=== PATIENT | male | born 1950 | race Caucasian/White ===

== ENCOUNTER → 2017-01-12 | Outpatient (CLI) | payer OTHER ==
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
== END | disposition home or self-care (01) ==
LOC: SLEEP 10:17
PROVIDERS: ATTEND Internal Medicine
DX: G47.33 Obstructive sleep apnea (adult) (pediatric) (principal); Z87.891 Personal history of nicotine dependence; E66.3 Overweight; Z68.29 Body mass index [BMI] 29.0-29.9, adult; G47.10 Hypersomnia, unspecified; Z87.442 Personal history of urinary calculi; Z98.890 Other specified postprocedural states
CPT/HCPCS: 99211

== ENCOUNTER → 2017-04-06 | Outpatient (CLI) | payer OTHER ==
--- NOTE | 2017-04-06 11:21 | PN ---
DATE OF SERVICE: 04/06/2017 A 66-year-old gentleman who has been followed in the sleep center for treatment of obstructive sleep apnea-hypopnea syndrome. Recently patient had a polysomnogram and titration with CPAP and I discussed results of the tests with patient in detail. He has severe sleep apnea. The patient was started on treatment with CPAP. He brought his unit. At the beginning, he did not have any problem with the equipment, feels very well refreshed in the morning, but with time he developed some problem with the mask with relationship to irritation of ( ) of his nose and for the last several days, he did not use his machine because of that. I checked his CPAP unit. Usage is 21 out of 30 nights, 13 out of 30 nights for more than 4 hours, a leak is up to 52 L per minute, which is significantly higher than it should be. With that regimen, AHI is 19.2, which is above normal. I reviewed results of the titration and results were perfect at the pressure of 13 with CPAP has now basically not have any abnormalities of respirations at all. MEDICATIONS: None. During physical exam, A 66-year-old gentleman without distress. VITAL SIGNS: BP 148/90 on the right arm, 137/84 on the left arm. HR 60, RR 16. Weight 199, temperature 97.7, oxygen saturation at room air 99%. HEENT: PERRLA, EOMI. Evaluation of oropharynx showed extremely low position of soft palate. Neck: Supple. No JVD. Thyroid is not palpable. LUNGS: Clear to percussion and to auscultation. Good air exchange. No wheezing or rhonchi. HEART: S1, S2 regular. No murmurs, gallops, or rubs. ABDOMEN: Soft and nontender. Bowel sounds are present. No organomegaly appreciated. EXTREMITIES: No clubbing or cyanosis. BLOW DOWN OPERATOR: Awake, alert, and oriented x3. Cranial nerves 2 to 7 intact. There is no fasciculation or atrophy noted. No focal deficits observed. IMPRESSION: 1. Severe obstructive sleep apnea-hypopnea syndrome. Apnea-hypopnea index 36.4 with oxygen desaturation to 77.6%. The patient has problem with the mask, irritation of the bridge of the nose and also significant leak from the mask. 2. Mild obesity. 3. History of kidney stones. 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 5. Restriction of nasal breathing. PLAN: 1. We will try a different type of the mask. I would think about ( ), this is full face mask that goes under the nose. 2. Continue to use CPAP equipment every night for the whole night. 3. Losing weight. 4. Sleep hygiene with regular time in bed for at least 8 hours. 5. No driving if feeling any sleepiness. 6. I will decrease pressure in his CPAP unit to 10. Sincerely, Aiden Bass MD, PhD, FAASM. Diplomat of [place] Board of Sleep Medicine, Sleep Medicine Board by [place] [employer] Specialities [place] [employer] of Internal Medicine Meat Boner And Slicer of [facility] [place]
== END | disposition home or self-care (01) ==
LOC: SLEEP 10:05
PROVIDERS: ATTEND Internal Medicine
DX: G47.33 Obstructive sleep apnea (adult) (pediatric) (principal); E66.9 Obesity, unspecified

== ENCOUNTER → 2017-06-01 | Outpatient (CLI) | payer OTHER ==
--- NOTE | 2017-06-01 15:18 | PN ---
DATE OF SERVICE: 06/01/2017 A 66-year-old gentleman who has been followed in the Sleep Center for treatment of obstructive sleep apnea-hypopnea syndrome I saw patient about 1 month ago, at that time, he had significant problem with the usage of full face mask. His mask was changed recently to the nasal pillow and he feels much better with this treatment. He is using nasal pillows with the chin strap. According to his girlfriend, sometimes he still has episodes of snoring with the machine. Normal [place] sleepiness scale 5. I checked patient's CPAP unit, CPAP pressure is 10 cm of water, ramp in automatic regimen. Usage is 29 out of 30 nights with 27 out of 30 nights for more than 4 hours. Average usage is 6 hours. Leak is on 8 L/min which is acceptable. Apnea-hypopnea index for the last month is 1.7 which is in normal range. MEDICATIONS: None. During physical exam, patient in no distress. BP 119/78, HR 59, RR 16, height 70 , weight 200, BMI 28.6, temp 98.3, oxygen saturation at room air 99%. Extremely low position of soft palpate. NECK: Supple. No JVD. Thyroid is not palpable. LUNGS: Clear to percussion and to auscultation. Good air exchange. No wheezing or rhonchi. HEART: S1, S2 regular. No murmurs, no gallops, or rubs. ABDOMEN: Soft and nontender. Bowel sounds are present. No organomegaly appreciated. EXTREMITIES: No clubbing or cyanosis. FURNITURE REPRODUCER: Awake, alert and oriented x3. Cranial nerves 2 to 7 intact. There is no fasciculation or atrophy noted. No focal deficits observed. IMPRESSION: 1. Severe obstructive sleep apnea-hypopnea syndrome, apnea-hypopnea index 36.4. This patient is on control with CPAP at the pressure of 10 cm of water but patient has some episodes of snoring. No significant leak from the machine. ( ) to very good compliance with treatment. 2. History of kidney stones. 3. Mild obesity. 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 5. Some restriction of nasal breathing. PLAN: 1. I adjusted his CPAP unit up to 11 cm of water to prevent snoring. 2. Continue usage of CPAP very night for the whole night with nasal pillow mask and chin strap. 3. Sleep hygiene with regular time in bed for at least 8 hours. 4. No driving if feeling any sleepiness. 5. A follow up visit in 10 months or earlier if patient has any problems. Sincerely, Aiden Bass MD, PhD, FAASM Diplomat of [place] Board of Sleep Medicine, Sleep Medicine Board by [place] [employer] [place] [employer] of Internal Medicine Medical Direct of [facility]
== END | disposition home or self-care (01) ==
LOC: SLEEP 10:14
PROVIDERS: ATTEND Internal Medicine
DX: G47.33 Obstructive sleep apnea (adult) (pediatric) (principal); E66.9 Obesity, unspecified

== ENCOUNTER → 2017-08-31 | Outpatient (CLI) | payer OTHER ==
--- NOTE | 2017-08-31 18:23 | PN ---
PROGRESS NOTE DATE OF SERVICE: 08/31/2017 57-year-old gentleman who has been followed in Sleep Center for treatment of obstructive sleep apnea-hypopnea syndrome. The patient successfully continued to use his CPAP equipment every night without significant problems related to mask fitting, humidification or pressure. [place] Sleepiness Scale today is 7. MEDICATIONS: None. I checked the patient's CPAP unit. CPAP pressure is 11 cm of water. Patient using equipment 100% of the time more than 4 hours. Average usage is 6.8 hours. Leak is 20 L/minute which is acceptable. The patient is using AirFit P10 nasal pillows. Apnea- hypopnea index reading only 1.6, which is totally normal. PHYSICAL EXAM: Patient in no distress, BP 119/73, HR 60, RR 16, height 5 feet 9 inches, weight 193, BMI 28.5, temperature 98.1, oxygen saturation on room air 97%, oropharynx extremely low position of soft palate under physical exam normal. Neck Supple, no JVD. Thyroid is not palpable. LUNGS Clear to percussion and to auscultation. Good air exchange. No wheezing or rhonchi. HEART S1, S2 regular. No murmurs, gallops, or rubs. ABDOMEN Soft and nontender. Bowel sounds are present. No organomegaly appreciated. EXTREMITIES No clubbing or cyanosis. GINSENG FARMER Awake, alert, and oriented X3. Cranial nerves 2 to 7 intact. There is no fasciculation or atrophy. noted. No focal deficits observed. IMPRESSION: 1. Severe obstructive sleep apnea-hypopnea syndrome, apnea-hypopnea index 36.4 on full control with CPAP at 11 cm of water. Patient demonstrated 100% compliance treatment benefitting from treatment. 2. Overweight, BMI 28.5. 3. History of kidney stones. 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 5. Some restriction of nasal breathing. PLAN: 1. Continue treatment with CPAP every night for the whole night. 2. Watching and losing weight. 3. Sleep hygiene with regular time in bed for at least 8 hours. 4. No driving if feeling sleepiness. 5. Prescription for all necessary CPAP supplies. Thank you very much for allowing me to participate in the management of your patient. Sincerely, Aiden Bass MD, PhD, FAASM Diplomat of [place] Board [employer] Specialties [place] Board of Internal Medicine Line Technician of [facility] Gilberto CASTILLO / IJN: [id number] / MARGE
== END ==
LOC: SLEEP 15:30
PROVIDERS: ATTEND Internal Medicine
DX: G47.33 Obstructive sleep apnea (adult) (pediatric) (principal); E66.3 Overweight; Z68.28 Body mass index [BMI] 28.0-28.9, adult

== ENCOUNTER → 2018-04-02 | Outpatient (CLI) | payer MEDICARE ==
[2018-04-03 04:19] LABS: Shrimp IgE <0.10 kU/L; Walnut IgE (Food) <0.10 kU/L
[2018-04-04 15:00] LABS: Beef IgE <0.35 kU/L (<0.35); Beef IgE Class CLASS 0; Crab IgE <0.35 kU/L (<0.35); Crab IgE Class CLASS 0; Lettuce IgE Class CLASS 0; Pork IgE Class CLASS 0
[2018-04-04 15:01] LABS: Apple IgE Class CLASS 0; Onion IgE <0.35 kU/L (<0.35); Onion IgE Class CLASS 0; Salmon IgE <0.35 kU/L (<0.35); Salmon IgE Class CLASS 0; Yeast Bakers/Brew IgE <0.35 kU/L (<0.35)
[2018-04-04 15:02] LABS: Celery IgE <0.35 kU/L (<0.35); Celery IgE Class CLASS 0; Chicken IgE Class CLASS 0; Egg Yolk IgE Class CLASS 0; Gluten IgE Class CLASS 0; Lobster IgE <0.35 kU/L (<0.35); Lobster IgE Class CLASS 0; Oat IgE Class CLASS 0
[2018-04-04 15:03] LABS: Alt. alternata IgE Class CLASS 0; Alternaria alternata IgE <0.35 kU/L (<0.35); Asperg. fumagatus IgE <0.35 kU/L (<0.35); Asperg. fumagatus IgE Class CLASS 0; Aureo. pullulans IgE <0.35 kU/L (<0.35); Avocado Class CLASS 0; Banana IgE Class CLASS 0; Birch(Com.Silvr) IgE <0.35 kU/L (<0.35); Birch(Com.Silvr) IgE Class CLASS 0; Candida albicans IgE Class CLASS 0; Cat Epith & Dander IgE <0.35 kU/L (<0.35); Cat Epith & Dander IgE Class CLASS 0; Chocolate IgE Class CLASS 0; Clad herbarum IgE <0.35 kU/L (<0.35); Cockroach IgE <0.35 kU/L (<0.35); Com. Pigweed IgE <0.35 kU/L (<0.35); Com. Pigweed IgE Class CLASS 0; Cottonwood IgE <0.35 kU/L (<0.35); Cow's Milk IgE Class CLASS 0; Dermato. Pteronyssinus IgE <0.35 kU/L (<0.35); Dermato. farinae IgE <0.35 kU/L (<0.35); Dermato. farinae IgE Class CLASS 0; Dog Dander IgE <0.35 kU/L (<0.35); Egg White IgE <0.35 kU/L (<0.35); English Plantain IgE Class CLASS 0; Epicoccum purpurascens Class CLASS 0; Epicoccum purpurascens IgE <0.35 kU/L (<0.35); Hazelnut IgE <0.35 kU/L (<0.35); Hazelnut IgE Class CLASS 0; Johnson Grass IgE Class CLASS 0; Kiwi IgE <0.35 kU/L (<0.35); Lamb's Quarter IgE <0.35 kU/L (<0.35); Lamb's Quarter IgE Class CLASS 0; Maple (Box Elder) IgE <0.35 kU/L (<0.35); Maple (Box Elder) IgE Class CLASS 0; Mucor racemosus IgE <0.35 kU/L (<0.35); Mucor racemosus IgE Class CLASS 0; Oak IgE <0.35 kU/L (<0.35); Peanut IgE <0.35 kU/L (<0.35); Potato IgE <0.35 kU/L (<0.35); Potato IgE Class CLASS 0; Rhizopus nigricans IgE <0.35 kU/L (<0.35); S.rostrata/Helminth Class CLASS 0; S.rostrata/Helminth IgE <0.35 kU/L (<0.35); Soybean IgE <0.35 kU/L (<0.35); Sycamore(Mpl.Lf) IgE <0.35 kU/L (<0.35); Timothy Grass IgE <0.35 kU/L (<0.35); Walnut Tree IgE <0.35 kU/L (<0.35); Walnut Tree IgE Class CLASS 0; White Ash IgE Class CLASS 0
[2018-04-04 15:04] LABS: Coffee IgE <0.35 kU/L (<0.35); Coffee IgE Class CLASS 0; Tea IgE <0.35 kU/L (<0.35)
== END | disposition home or self-care (01) ==
LOC: LABWHC1 17:20
PROVIDERS: ATTEND Otolaryngology
DX: L50.0 Allergic urticaria (principal)
CPT/HCPCS: 36415; 86001; 86003

== ENCOUNTER → 2018-06-07 | Outpatient (CLI) | payer MEDICARE ==
--- NOTE | 2018-06-07 12:48 | SFUN ---
SLEEP CENTER FOLLOW UP NOTE A 67-year-old gentleman who has been followed in the Sleep Center for treatment of obstructive sleep apnea-hypopnea syndrome. Recently he received new CPAP unit and this is his first visit with the new CPAP machine. Patient continued to use his CPAP equipment every night for the whole night. Sleeps better with the machine, machine works better in terms of humidity. Patient reported that sometimes he is puffing air through his mouth during the sleep, although he is using a chinstrap and nasal mask. [place] Sleepiness Scale today is 7. I checked patient's CPAP unit. CPAP pressure is 13 cm of water. Usage is 100% of the time more than 4 hours, average 8.0 hours. Leak is borderline 35 L/minute. Apnea- hypopnea index for the last month 1.4, which is normal. MEDICATIONS: None. PHYSICAL EXAM: Patient in no distress. BP 130/79, HR 72, RR 16, weight 196.8, temperature 98.4, body mass index 28.9. OROPHARYNX: Low position of soft palate. Neck Supple, no JVD. Thyroid is not palpable. LUNGS Clear to percussion and to auscultation. Good air exchange. No wheezing or rhonchi. HEART S1, S2 regular. No murmurs, gallops, or rubs. ABDOMEN Soft and nontender. Bowel sounds are present. No organomegaly appreciated. EXTREMITIES No clubbing or cyanosis. ROLE PLAYER Awake, alert, and oriented X3. Cranial nerves 2 to 7 intact. There is no fasciculation or atrophy. noted. No focal deficits observed. IMPRESSION: 1. Obstructive sleep apnea-hypopnea syndrome. Patient demonstrated 100% compliance with treatment, benefitting from treatment. 2. History of some periodic limb movements documented during the sleep study, clinically not any presentation of foot movements. PLAN: 1. I reviewed results of the sleep study and I will decrease the pressure down to 11 cm of water. 2. Patient will continue to use his CPAP equipment every night. 3. Sleep hygiene with regular time in bed for at least 8 hours. 4. No driving if feeling any sleepiness. Sincerely, Aiden Bass MD, PhD, FAASM Diplomat of [place] Board [employer] Specialties [place] Board of Internal Medicine Novelty Candy Maker of [facility] [place] MMODL / MITZYN: [id number] /
== END | disposition home or self-care (01) ==
LOC: SLEEP 11:38
PROVIDERS: ATTEND Internal Medicine
DX: G47.33 Obstructive sleep apnea (adult) (pediatric) (principal); Z99.89 Dependence on other enabling machines and devices

== ENCOUNTER 2019-03-21 15:09 | Emergency (ER) | payer MEDICARE, OTHER ==
[2019-03-21 15:40] VITALS: TEMP 98.5
[2019-03-21] MEDS ORDERED: SODIUM CHLORIDE 0.9% 1,000 ML IV STA (15:46)
[2019-03-21] MEDS ORDERED: ONDANSETRON 4 MG/2 ML VIAL IVP STA (15:46)
[2019-03-21] MEDS ORDERED: PANTOPRAZOLE 40 MG/10 ML VIAL IVP STA (15:46)
--- NOTE | 2019-03-21 16:05 | ED ---
Abdominal Pain HPI - General Chief Complaint: Abdominal Pain Stated Complaint: poss kidney stone Time Seen by Provider: 03/21/19 15:45 Source: patient, RN notes reviewed, old records reviewed Mode of arrival: ambulatory Limitations: no limitations - History of Present Illness Initial Comments: This is a 68-year-old male the ER for evaluation. Patient resents today for evaluation regards to abdominal pain. History of kidney stones. Feels like prior kidney stones. Blood in his urine. Severe pain. Patient has not had prior surgery are issues with kidney stones. No current nausea vomiting. Patient's pain symptoms are improved with home treatment MD Complaint: abdominal pain, flank pain (Right sided) -: hour(s) Location: RLQ, suprapubic Radiation: suprapubic Migration to: RLQ Severity: severe Severity scale (1-10): 8 Quality: stabbing, aching Consistency: constant, now resolved Improves With: nothing Worsens With: nothing Associated Symptoms: nausea, vomiting - Related Data Home Medications Medication Instructions Recorded Confirmed Liquid Iodine Oral Drops(Unknown 1 dose PO DAILY 07/21/16 03/21/19 Dose) Mullein Leaves Oral 2 cap PO DAILY 07/21/16 03/21/19 Supplement(Unknown) Vitamin D3 5000 Unit Oral Drops 5,000 units PO DAILY 07/21/16 03/21/19 Calcium Carb/Magnesium Ox,Carb 1 tab PO DAILY 03/21/19 03/21/19 [Jori-Mag 500-250 MG Chewable] Cinnamon Bark [Cinnamon] 500 mg PO DAILY 03/21/19 03/21/19 Turmeric Root Extract [Turmeric] 500 mg PO DAILY 03/21/19 03/21/19 Zinc 50 mg PO DAILY 03/21/19 03/21/19 Allergies Allergy/AdvReac Type Severity Reaction Status Date / Time Penicillins Allergy Unknown Verified 03/21/19 16:14 Childhood Review of Systems ROS Statement: Those systems with pertinent positive or pertinent negative responses have been documented in the HPI. ROS Other: All systems not noted in ROS Statement are negative. Past Medical History Additional Past Medical History / Comment(s): hernia, "IRREG HEART BEAT FEW YEARS AGO", KIDNEY STONES X3 History of Any Multi-Drug Resistant Organisms: None Reported Past Surgical History: Adenoidectomy, Tonsillectomy Additional Past Surgical History / Comment(s): lithotripsy, SX FOR GENTIAL WARTS Past Anesthesia/Blood Transfusion Reactions: No Reported Reaction Past Psychological History: No Psychological Hx Reported Smoking Status: Former smoker Past Alcohol Use History: Rare Past Drug Use History: Cocaine, Marijuana - Past Family History Father Family Medical History: Myocardial Infarction ([place]) Additional Family Medical History / Comment(s): AT AGE 77 Mother Family Medical History: Diabetes Mellitus General Exam Limitations: no limitations General appearance: alert, in no apparent distress Head exam: Present: atraumatic, normocephalic, normal inspection Eye exam: Present: normal appearance, PERRL, EOMI. Absent: scleral icterus, conjunctival injection, periorbital swelling ENT exam: Present: normal exam, mucous membranes moist Neck exam: Present: normal inspection. Absent: tenderness, meningismus, lymphadenopathy Respiratory exam: Present: normal lung sounds bilaterally. Absent: respiratory distress, wheezes, rales, rhonchi, stridor Cardiovascular Exam: Present: regular rate, normal rhythm, normal heart sounds. Absent: systolic murmur, diastolic murmur, rubs, gallop, clicks GI/Abdominal exam: Present: soft, normal bowel sounds. Absent: distended, tenderness, guarding, rebound, rigid Extremities exam: Present: normal inspection, full ROM, normal capillary refill. Absent: tenderness, pedal edema, joint swelling, calf tenderness Back exam: Present: normal inspection Neurological exam: Present: alert, oriented X3, CN II-XII intact Psychiatric exam: Present: normal affect, normal mood Skin exam: Present: warm, dry, intact, normal color. Absent: rash Course Vital Signs 03/21/19 03/21/19 03/21/19 15:36 16:35 18:35 Temperature 98.5 F Pulse Rate 69 65 61 Respiratory 18 18 16 Rate Blood Pressure 127/77 125/79 124/73 O2 Sat by Pulse 98 99 99 Oximetry - Reevaluation(s) Reevaluation #1: Medical record is reviewed Patient has pain control Medical Decision Making - Medical Decision Making 68 male the ER for evaluation. Patient does have abdominal pain, CT is positive for kidney stone. Patient will be discharged home with pain control - Lab Data Result diagrams: 03/21/19 16:20 03/21/19 16:20 Lab Results 04/25/19 04/25/19 04/25/19 Range/Units 16:05 16:20 16:20 WBC 6.1 (3.8-10.6) k/uL RBC 4.81 (4.30-5.90) m/uL Hgb 14.6 (13.0-17.5) gm/dL Hct 43.2 (39.0-53.0) % MCV 89.8 (80.0-100.0) fL MCH 30.4 (25.0-35.0) pg MCHC 33.8 (31.0-37.0) g/dL RDW 13.3 (11.5-15.5) % Plt Count 173 (150-450) k/uL Neutrophils % 62 % Lymphocytes % 22 % Monocytes % 9 % Eosinophils % 3 % Basophils % 1 % Neutrophils # 3.8 (1.3-7.7) k/uL Lymphocytes # 1.4 (1.0-4.8) k/uL Monocytes # 0.5 (0-1.0) k/uL Eosinophils # 0.2 (0-0.7) k/uL Basophils # 0.1 (0-0.2) k/uL Sodium 141 (137-145) mmol/L Potassium 4.3 (3.5-5.1) mmol/L Chloride 106 (98-107) mmol/L Carbon Dioxide 27 (22-30) mmol/L Anion Gap 8 mmol/L BUN 16 (9-20) mg/dL Creatinine 0.60 L (0.66-1.25) mg/dL Est GFR (CKD-EPI)AfAm >90 (>60 ml/min/1.73 sqM) Est GFR (CKD-EPI)NonAf >90 (>60 ml/min/1.73 sqM) Glucose 97 (74-99) mg/dL Plasma Lactic Acid Alberto (0.7-2.0) mmol/L Calcium 9.5 (8.4-10.2) mg/dL Total Bilirubin 0.7 (0.2-1.3) mg/dL AST 22 (17-59) U/L ALT 30 (21-72) U/L Alkaline Phosphatase 80 (38-126) U/L Total Protein 6.9 (6.3-8.2) g/dL Albumin 4.4 (3.5-5.0) g/dL Amylase 46 (30-110) U/L Lipase 27 (23-300) U/L Urine Color Yellow Urine Appearance Turbid (Clear) Urine pH 7.5 (5.0-8.0) Ur Specific [place] 1.016 (1.001-1.035) Urine Protein Trace H (Negative) Urine Glucose (UA) Negative (Negative) Urine Ketones Negative (Negative) Urine Blood Moderate H (Negative) Urine Nitrite Negative (Negative) Urine Bilirubin Negative (Negative) Urine Urobilinogen <2.0 (<2.0) mg/dL Ur Leukocyte Esterase Negative (Negative) Urine RBC >182 H (0-5) /hpf Amorphous Sediment Rare H (None) /hpf 03/21/19 Range/Units 16:20 WBC (3.8-10.6) k/uL RBC (4.30-5.90) m/uL Hgb (13.0-17.5) gm/dL Hct (39.0-53.0) % MCV (80.0-100.0) fL MCH (25.0-35.0) pg MCHC (31.0-37.0) g/dL RDW (11.5-15.5) % Plt Count (150-450) k/uL Neutrophils % % Lymphocytes % % Monocytes % % Eosinophils % % Basophils % % Neutrophils # (1.3-7.7) k/uL Lymphocytes # (1.0-4.8) k/uL Monocytes # (0-1.0) k/uL Eosinophils # (0-0.7) k/uL Basophils # (0-0.2) k/uL Sodium (137-145) mmol/L Potassium (3.5-5.1) mmol/L Chloride (98-107) mmol/L Carbon Dioxide (22-30) mmol/L Anion Gap mmol/L BUN (9-20) mg/dL Creatinine (0.66-1.25) mg/dL Est GFR (CKD-EPI)AfAm (>60 ml/min/1.73 sqM) Est GFR (CKD-EPI)NonAf (>60 ml/min/1.73 sqM) Glucose (74-99) mg/dL Plasma Lactic Acid Alberto 1.2 (0.7-2.0) mmol/L Calcium (8.4-10.2) mg/dL Total Bilirubin (0.2-1.3) mg/dL AST (17-59) U/L ALT (21-72) U/L Alkaline Phosphatase (38-126) U/L Total Protein (6.3-8.2) g/dL Albumin (3.5-5.0) g/dL Amylase (30-110) U/L Lipase (23-300) U/L Urine Color Urine Appearance (Clear) Urine pH (5.0-8.0) Ur Specific [place] (1.001-1.035) Urine Protein (Negative) Urine Glucose (UA) (Negative) Urine Ketones (Negative) Urine Blood (Negative) Urine Nitrite (Negative) Urine Bilirubin (Negative) Urine Urobilinogen (<2.0) mg/dL Ur Leukocyte Esterase (Negative) Urine RBC (0-5) /hpf Amorphous Sediment (None) /hpf - Radiology Data Radiology results: report reviewed (CT head and pelvis is positive for kidney stone), image reviewed Disposition Clinical Impression: Right ureteral calculus Disposition: HOME SELF-CARE Condition: Good Instructions (If sedation given, give patient instructions): Kidney Stones (ED) Is patient prescribed a controlled substance at d/c from ED?: No Referrals: None,Stated [Primary Care Provider] - 1-2 days
[2019-03-21 16:25] LABS: Amorphous Sediment,Urine Rare /hpf; Appearance,Urine Turbid (Clear); Bilirubin,Urine Negative (Negative); Blood,Urine Moderate (Negative); Color,Urine Yellow; Glucose,Urine (UA) Negative (Negative); Ketones,Urine Negative (Negative); Leukocyte Esterase,Urine Negative (Negative); Nitrite,Urine Negative (Negative); PH, Urine 7.5 (5.0-8.0); Protein,Urine Trace (Negative); RBC,Urine >182 /hpf (0-5); Specific Gravity,Urine 1.016 (1.001-1.035); Urobilinogen,Urine <2.0 mg/dL (<2.0)
[2019-03-21 16:46] LABS: Basophils # (A) 0.1 k/uL (0-0.2); Basophils % (A) 1 %; Eosinophils # (A) 0.2 k/uL (0-0.7); Eosinophils % (A) 3 %; HCT 43.2 % (39.0-53.0); HGB 14.6 gm/dL (13.0-17.5); Lymphocytes # (A) 1.4 k/uL (1.0-4.8); Lymphocytes % (A) 22 %; MCH 30.4 pg (25.0-35.0); MCHC 33.8 g/dL (31.0-37.0); MCV 89.8 fL (80.0-100.0); Mean Platelet Volume 7.2; Monocytes # (A) 0.5 k/uL (0-1.0); Monocytes % (A) 9 %; Neutrophils # (A) 3.8 k/uL (1.3-7.7); Neutrophils % (A) 62 %; Platelet Count 173 k/uL (150-450); RBC 4.81 m/uL (4.30-5.90); RDW 13.3 % (11.5-15.5); WBC 6.1 k/uL (3.8-10.6)
[2019-03-21 16:53] LABS: ALT 30 U/L (21-72); AST 22 U/L (17-59); Albumin 4.4 g/dL (3.5-5.0); Alkaline Phosphatase 80 U/L (38-126); Amylase 46 U/L (30-110); Anion Gap 8 mmol/L; Blood Urea Nitrogen 16 mg/dL (9-20); Calcium 9.5 mg/dL (8.4-10.2); Carbon Dioxide 27 mmol/L (22-30); Chloride 106 mmol/L (98-107); Glucose 97 mg/dL (74-99); Lipase 27 U/L (23-300); Potassium 4.3 mmol/L (3.5-5.1); Sodium 141 mmol/L (137-145); Total Bilirubin 0.7 mg/dL (0.2-1.3); Total Protein 6.9 g/dL (6.3-8.2)
[2019-03-21] MEDS ORDERED: KETOROLAC 30 MG/ML 1 ML VIAL IVP STA (17:46)
--- NOTE | 2019-03-21 17:56 | CT ---
EXAMINATION TYPE: CT abdomen pelvis wo con DATE OF EXAM: 03/21/2019 COMPARISON: None HISTORY: right flank pain, hx of stones CT DLP: 603 mGycm Automated exposure control for dose reduction was used. TECHNIQUE: Helical acquisition of images was performed from the lung bases through the pelvis. FINDINGS: Lung bases are clear of consolidation. There is mild subsegmental atelectasis at the right lung base. Heart size is normal. There is no pericardial effusion. There is no pleural effusion. Stomach appear s normal. Liver spleen pancreas gallbladder appear normal. Bile ducts are not dilated. There is no adrenal mass . Kidneys have normal size. There is 2 cm cortical cyst upper pole right kidney. There is a 1 cm calc ulus lower pole left kidney. There is 6 mm calculus lateral left kidney. There is some fullness of westley th renal collecting systems. There is a mild right side hydroureter with a 4 mm calculus in the proxi mal right ureter. I see no evidence of left ureteral calculus. There is no retroperitoneal adenopathy. There is atherosclerotic vascular calcification. Bladder dist ends smoothly. There is prostatic calcification. Prostate is enlarged and measures 5 cm. There is lef t-sided inguinal hernia containing sigmoid colon. There is no sign of a bowel obstruction. Appendix a ppears normal. I see no bony destructive process. There is no lumbar compression fracture. Bony pelvi s appears intact. There is no mesenteric edema. There is no free air. There is no ascites. IMPRESSION: LEFT-SIDED RENAL CALCULI. MILD BILATERAL HYDRONEPHROSIS. THERE IS OBSTRUCTING SMALL CALCULUS IN THE P ROXIMAL RIGHT URETER. NO LEFT SIDE URETERAL OBSTRUCTION SEEN.
[2019-03-21] MEDS ORDERED: TAMSULOSIN 0.4 MG CAP.ER.24H PO STA (18:26)
[2019-03-21 18:51] VITALS: BP 124/73; PULSE 61; RESP 16
== END 2019-03-21 18:53 | disposition home or self-care (01) ==
LOC: EC 15:09
DX: N20.1 Calculus of ureter (principal); Z87.19 Personal history of other diseases of the digestive system; Z98.890 Other specified postprocedural states; Z79.899 Other long term (current) drug therapy; Z88.0 Allergy status to penicillin
CPT/HCPCS: 36415; 80053; 82150; 83605; 83690; 85025; 81001; 87086; 74176; 99284; 96374; 96375; 96361; J2405; C9113

== ENCOUNTER 2019-03-28 01:28 | Emergency (ER) | payer MEDICARE, OTHER ==
[2019-03-28] MEDS ORDERED: KETOROLAC 30 MG/ML 1 ML VIAL IVP STA (01:36)
[2019-03-28] MEDS ORDERED: SODIUM CHLORIDE 0.9% 1,000 ML IV ONE (01:36)
--- NOTE | 2019-03-28 01:36 | ED ---
General Adult HPI - General Stated complaint: Kidney Stone Time Seen by Provider: 03/28/19 01:29 - History of Present Illness Initial comments: William is a 68 her old gentleman with a history of recurrent kidney stones who was seen and evaluated last week and diagnosed with a 4 mm right-sided kidney stone. Patient reports that his pain was controlled while in the emergency department he was discharged home. Patient reports he did have some waves of p ain intermittently but thought he passed a stone on Monday however around 9 PM last night he began feeling pressure-like pain in his right flank with radiation into his right testicle. Patient reports this is identical to the pain he was experiencing last week when diagnosed with a kidney stone. Pain was overwhelming patient felt he couldn't drive safely to the hospital so he called EMS for transport to the hospital. Patient reports he was experiencing hematuria between last and Monday however that had cleared up until tonight when he again noticed some mild hematuria. - Related Data Home Medications Medication Instructions Recorded Confirmed Liquid Iodine Oral Drops(Unknown 1 dose PO DAILY 07/21/16 03/21/19 Dose) Mullein Leaves Oral 2 cap PO DAILY 07/21/16 03/21/19 Supplement(Unknown) Vitamin D3 5000 Unit Oral Drops 5,000 units PO DAILY 07/21/16 03/21/19 Calcium Carb/Magnesium Ox,Carb 1 tab PO DAILY 03/21/19 03/21/19 [Jori-Mag 500-250 MG Chewable] Cinnamon Bark [Cinnamon] 500 mg PO DAILY 03/21/19 03/21/19 Turmeric Root Extract [Turmeric] 500 mg PO DAILY 03/21/19 03/21/19 Zinc 50 mg PO DAILY 03/21/19 03/21/19 Allergies Allergy/AdvReac Type Severity Reaction Status Date / Time Penicillins Allergy Unknown Verified 03/21/19 16:14 Childhood Review of Systems ROS Statement: Those systems with pertinent positive or pertinent negative responses have been documented in the HPI. ROS Other: All systems not noted in ROS Statement are negative. Past Medical History Additional Past Medical History / Comment(s): hernia, "IRREG HEART BEAT FEW YEARS AGO", KIDNEY STONES X3 History of Any Multi-Drug Resistant Organisms: None Reported Past Surgical History: Adenoidectomy, Tonsillectomy Additional Past Surgical History / Comment(s): lithotripsy, SX FOR GENTIAL WARTS Past Anesthesia/Blood Transfusion Reactions: No Reported Reaction Past Psychological History: No Psychological Hx Reported Smoking Status: Former smoker Past Alcohol Use History: Rare Past Drug Use History: Cocaine, Marijuana - Past Family History Father Family Medical History: Myocardial Infarction ([place]) Additional Family Medical History / Comment(s): AT AGE 77 Mother Family Medical History: Diabetes Mellitus General Exam - General Exam Comments Initial Comments: Physical Exam GENERAL: Uncomfortable appearing HENT: Normocephalic, Atraumatic. EYES: PERRL, EOMI PULMONARY: Unlabored respirations. No audible rales rhonchi or wheezing was noted. CARDIOVASCULAR: There is a regular rate and rhythm without any murmurs gallops or rubs. ABDOMEN: Soft and nontender with normal bowel sounds. Tenderness to percussion of right flank SKIN: Skin is clear with no lesions or rashes and otherwise unremarkable. : Deferred NEUROLOGIC: Patient is alert and oriented x3. Moving all extremities spontaneously MUSCULOSKELETAL: Normal extremities with adequate strength and full range of motion. No lower extremity swelling or edema. No calf tenderness. PSYCHIATRIC: Normal psychiatric evaluation. Limitations: no limitations Course Vital Signs 03/28/19 01:35 Temperature 98.5 F Pulse Rate 83 Respiratory 18 Rate Blood Pressure 161/95 O2 Sat by Pulse 99 Oximetry Medical Decision Making - Medical Decision Making The patient was seen and evaluated history was obtained from the patient and review of medical record Patient with a known right-sided kidney stone having episodic pain. Worsening tonight not associated with any nausea, vomiting or change in bowel or bladder habits Patient received fentanyl and route to the hospital Repeat labs were ordered to assess kidney function as well as urinalysis Toradol was ordered for pain Patient was re-evaluated, pain resolved after toradol Kidney function within normal limits Patient did not provide a urine sample while in the ER but is eager for discharge home - Lab Data Result diagrams: 03/28/19 01:40 03/28/19 01:40 Lab Results 03/28/19 03/28/19 Range/Units 01:40 01:40 WBC 9.3 (3.8-10.6) k/uL RBC 4.93 (4.30-5.90) m/uL Hgb 15.0 (13.0-17.5) gm/dL Hct 43.7 (39.0-53.0) % MCV 88.7 (80.0-100.0) fL MCH 30.5 (25.0-35.0) pg MCHC 34.4 (31.0-37.0) g/dL RDW 13.2 (11.5-15.5) % Plt Count 172 (150-450) k/uL Neutrophils % 77 % Lymphocytes % 10 % Monocytes % 9 % Eosinophils % 2 % Basophils % 1 % Neutrophils # 7.1 (1.3-7.7) k/uL Lymphocytes # 1.0 (1.0-4.8) k/uL Monocytes # 0.8 (0-1.0) k/uL Eosinophils # 0.1 (0-0.7) k/uL Basophils # 0.1 (0-0.2) k/uL Sodium 137 (137-145) mmol/L Potassium 4.3 (3.5-5.1) mmol/L Chloride 102 (98-107) mmol/L Carbon Dioxide 26 (22-30) mmol/L Anion Gap 9 mmol/L BUN 15 (9-20) mg/dL Creatinine 0.80 (0.66-1.25) mg/dL Est GFR (CKD-EPI)AfAm >90 (>60 ml/min/1.73 sqM) Est GFR (CKD-EPI)NonAf >90 (>60 ml/min/1.73 sqM) Glucose 117 H (74-99) mg/dL Calcium 9.9 (8.4-10.2) mg/dL Total Bilirubin 0.5 (0.2-1.3) mg/dL AST 19 (17-59) U/L ALT 17 L (21-72) U/L Alkaline Phosphatase 75 (38-126) U/L Total Protein 6.9 (6.3-8.2) g/dL Albumin 4.5 (3.5-5.0) g/dL Disposition Clinical Impression: Flank pain Disposition: HOME SELF-CARE Condition: Stable Instructions (If sedation given, give patient instructions): Kidney Stones (ED) Is patient prescribed a controlled substance at d/c from ED?: No Referrals: None,Stated [Primary Care Provider] - 1-2 days Ashely Davis MD [REFERRING] - 1-2 days [facility] [NON-STAFF] - 1-2 days Sukhdev Mills MD [STAFF PHYSICIAN] - 1-2 days Time of Disposition: 03:02
[2019-03-28 02:01] LABS: Basophils # (A) 0.1 k/uL (0-0.2); Basophils % (A) 1 %; Eosinophils # (A) 0.1 k/uL (0-0.7); Eosinophils % (A) 2 %; HCT 43.7 % (39.0-53.0); Lymphocytes % (A) 10 %; MCH 30.5 pg (25.0-35.0); MCHC 34.4 g/dL (31.0-37.0); MCV 88.7 fL (80.0-100.0); Mean Platelet Volume 7.5; Monocytes # (A) 0.8 k/uL (0-1.0); Monocytes % (A) 9 %; Neutrophils # (A) 7.1 k/uL (1.3-7.7); Neutrophils % (A) 77 %; Platelet Count 172 k/uL (150-450); RBC 4.93 m/uL (4.30-5.90); RDW 13.2 % (11.5-15.5); WBC 9.3 k/uL (3.8-10.6)
[2019-03-28 02:11] LABS: ALT 17 U/L (21-72); AST 19 U/L (17-59); Albumin 4.5 g/dL (3.5-5.0); Alkaline Phosphatase 75 U/L (38-126); Anion Gap 9 mmol/L; Blood Urea Nitrogen 15 mg/dL (9-20); Calcium 9.9 mg/dL (8.4-10.2); Carbon Dioxide 26 mmol/L (22-30); Chloride 102 mmol/L (98-107); Glucose 117 mg/dL (74-99); Potassium 4.3 mmol/L (3.5-5.1); Sodium 137 mmol/L (137-145); Total Bilirubin 0.5 mg/dL (0.2-1.3); Total Protein 6.9 g/dL (6.3-8.2)
[2019-03-28 03:21] VITALS: BP 126/85; PULSE 81; RESP 19; TEMP 98.1
== END 2019-03-28 03:20 | disposition home or self-care (01) ==
LOC: EC 01:28
DX: R10.9 Unspecified abdominal pain (principal); N50.811 Right testicular pain; R31.9 Hematuria, unspecified; Z87.891 Personal history of nicotine dependence; Z88.0 Allergy status to penicillin; Z79.899 Other long term (current) drug therapy; Z87.442 Personal history of urinary calculi; Z98.890 Other specified postprocedural states
CPT/HCPCS: 36415; 80053; 85025; 99284; 96374; 96361 ×2; J1885

== ENCOUNTER → 2019-06-13 | Outpatient (CLI) | payer MEDICARE, OTHER ==
--- NOTE | 2019-06-13 14:33 | SFUN ---
SLEEP CENTER FOLLOW UP NOTE DATE OF SERVICE: 06/13/2019 A 68-year-old gentleman who has been followed in the Sleep Center for treatment of obstructive sleep apnea-hypopnea syndrome. Patient continued to use his CPAP equipment every night for the whole night without significant problems related to the mask fitting, pressure or humidification. [place] Sleepiness Scale today is 7, which is normal. I checked the CPAP unit. CPAP pressure is 11 cm of water. Usage is 100% of the nights more than 4 hours with average usage 9.1 hour, pressure 11 cm of water. Leak is 28 L/minute which is borderline. Apnea-hypopnea index 22.1, which is absolutely perfect. MEDICATIONS: None. PHYSICAL EXAM: Patient in no distress. BP 123/79, HR 14, height 5 foot, 9 inches, weight 209 pounds. Body mass index 30.8. Patient increase his weight 113 pounds compared with the previous visit, temperature 98.2, oxygen saturation at room air 99%. OROPHARYNX: Low position of soft palate. Mallampati 4. Neck Supple, no JVD. Thyroid is not palpable. LUNGS Clear to percussion and to auscultation. Good air exchange. No wheezing or rhonchi. HEART S1, S2 regular. No murmurs, gallops, or rubs. ABDOMEN Soft and nontender. Bowel sounds are present. No organomegaly appreciated. EXTREMITIES No clubbing or cyanosis. SEE SUPERVISOR Awake, alert, and oriented X3. Cranial nerves 2 to 7 intact. There is no fasciculation or atrophy. noted. No focal deficits observed. IMPRESSION: 1. Obstructive sleep apnea-hypopnea syndrome. Patient demonstrated 100% compliance with treatment, benefitting from treatment. 2. Mild obesity, body mass index 30.8. 3. History of periodic limb movements during the sleep study. Not any clinical presentation of leg movements at night. 4. History of kidney stones in the past. 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 PLAN: 1. Patient will continue to use CPAP equipment every night for the whole night. 2. I will maintain all necessary CPAP prescriptions including mask, tube, filters. 3. Watching and losing weight. 4. Sleep hygiene with regular time in bed for at least 8 hours. 5. No driving if feeling sleepiness. 6. Followup visit in 1 year or earlier if patient has any problems. Sincerely, Aiden Bass MD, PhD, FAASM Diplomat of [place] [employer] [place] [employer] Clinical Documentation Developer of [facility] [place] [email or web address] / ANDREIA: [id number] /
== END | disposition home or self-care (01) ==
LOC: SLEEP 13:24
PROVIDERS: ATTEND Internal Medicine
DX: G47.33 Obstructive sleep apnea (adult) (pediatric) (principal); E66.9 Obesity, unspecified; Z68.30 Body mass index [BMI] 30.0-30.9, adult; Z86.69 Personal history of other diseases of the nervous system and sense organs; Z87.442 Personal history of urinary calculi; Z99.89 Dependence on other enabling machines and devices

== ENCOUNTER 2020-03-08 20:44 | Emergency (ER) | payer MEDICARE, OTHER ==
[2020-03-08 20:51] VITALS: TEMP 98.3
[2020-03-08] MEDS ORDERED: METOCLOPRAMIDE 5 MG/ML 2 ML VIAL IVP STA (21:01)
[2020-03-08] MEDS ORDERED: KETOROLAC 30 MG/ML 1 ML VIAL IVP STA (21:01)
--- NOTE | 2020-03-08 21:03 | ED ---
General Adult HPI - General Chief complaint: Abdominal Pain Stated complaint: Flank pain Time Seen by Provider: 03/08/20 20:54 Source: patient, RN notes reviewed Mode of arrival: ambulatory Limitations: no limitations - History of Present Illness Initial comments: Patient is a pleasant 69-year-old male presenting to the emergency Department with left flank pain. Patient has had some left lower back discomfort over the past week or so. This is been mild. Symptoms started getting severe prior to arrival and is radiate towards the left testicle. Patient states discomfort is moderate to severe. Patient states it is difficult to get comfortable. Patient states he has had similar symptoms at least 5 times previously associated with kidney stones. No vomiting. No fevers. - Related Data Home Medications Medication Instructions Recorded Confirmed Liquid Iodine Oral Drops(Unknown 1 dose PO PC-SUPPER 07/21/16 03/08/20 Dose) Vitamin D3 5000 Unit Oral Drops 5,000 units PO PC-SUPPER 07/21/16 03/08/20 Zinc 50 mg PO PC-SUPPER 03/21/19 03/08/20 Calcium Carbonate [Calcium] 600 mg PO PC-SUPPER 03/08/20 03/08/20 Hyaluronic Acid 50mg 50 mg PO PC-SUPPER 03/08/20 03/08/20 Magnesium Oxide [Magox 400] 400 mg PO PC-SUPPER 03/08/20 03/08/20 Phytonadione [Vitamin K] 5 mg PO PC-SUPPER 03/08/20 03/08/20 Potassium Gluconate 99 mg PO PC-SUPPER 03/08/20 03/08/20 Vitamin E 1,000 unit PO PC-SUPPER 03/08/20 03/08/20 Allergies Allergy/AdvReac Type Severity Reaction Status Date / Time Penicillins Allergy Unknown Verified 03/08/20 21:52 Childhood Review of Systems ROS Statement: Those systems with pertinent positive or pertinent negative responses have been documented in the HPI. ROS Other: All systems not noted in ROS Statement are negative. Constitutional: Denies: fever Eyes: Denies: eye pain ENT: Denies: ear pain Respiratory: Denies: dyspnea Cardiovascular: Denies: palpitations Endocrine: Denies: fatigue Gastrointestinal: Denies: vomiting Genitourinary: Denies: dysuria Musculoskeletal: Reports: back pain Skin: Denies: rash Neurological: Denies: weakness Past Medical History Additional Past Medical History / Comment(s): hernia, "IRREG HEART BEAT FEW YEARS AGO", KIDNEY STONES X3 History of Any Multi-Drug Resistant Organisms: None Reported Past Surgical History: Adenoidectomy, Tonsillectomy Additional Past Surgical History / Comment(s): lithotripsy, SX FOR GENTIAL WARTS Past Anesthesia/Blood Transfusion Reactions: No Reported Reaction Past Psychological History: No Psychological Hx Reported Smoking Status: Current every day smoker Past Alcohol Use History: Rare Past Drug Use History: Cocaine, Marijuana - Past Family History Father Family Medical History: Myocardial Infarction ([place]) Additional Family Medical History / Comment(s): AT AGE 77 Mother Family Medical History: Diabetes Mellitus General Exam Limitations: no limitations General appearance: alert, other (Patient pacing around and appears uncomfortable) Head exam: Present: normocephalic Neck exam: Present: normal inspection Respiratory exam: Present: normal lung sounds bilaterally Cardiovascular Exam: Present: regular rate, normal rhythm Expanded Peripheral pulses: 2+: Posterior Tibialis (R), Posterior Tibialis (L), Dorsalis Pedis (R), Dorsalis Pedis (L) GI/Abdominal exam: Present: soft. Absent: distended, tenderness Extremities exam: Present: normal inspection Back exam: Present: normal inspection. Absent: tenderness Neurological exam: Present: alert Psychiatric exam: Present: normal affect, normal mood Skin exam: Present: normal color Course Vital Signs 03/08/20 20:49 Temperature 98.3 F Pulse Rate 83 Respiratory 18 Rate Blood Pressure 133/90 O2 Sat by Pulse 100 Oximetry Medical Decision Making - Medical Decision Making Patient reevaluated and resting comfortably in bed, symptom-free. Patient u pdated on results and need for follow-up. Patient is made aware of probable renal cyst and need for follow-up with that as well. - Lab Data Result diagrams: 03/08/20 21:09 03/08/20 21:09 Lab Results 03/08/20 03/08/20 03/08/20 Range/Units 21:09 21: 21: WBC 5.7 (3.8-10.6) k/uL RBC 4.80 (4.30-5.90) m/uL Hgb 14.7 (13.0-17.5) gm/dL Hct 42.8 (39.0-53.0) % MCV 89.2 (80.0-100.0) fL MCH 30.6 (25.0-35.0) pg MCHC 34.4 (31.0-37.0) g/dL RDW 12.9 (11.5-15.5) % Plt Count 178 (150-450) k/uL Neutrophils % 54 % Lymphocytes % 33 % Monocytes % 7 % Eosinophils % 3 % Basophils % 1 % Neutrophils # 3.1 (1.3-7.7) k/uL Lymphocytes # 1.9 (1.0-4.8) k/uL Monocytes # 0.4 (0-1.0) k/uL Eosinophils # 0.2 (0-0.7) k/uL Basophils # 0.1 (0-0.2) k/uL PT 10.1 (9.0-12.0) sec INR 1.0 (<1.2) APTT 21.4 L (22.0-30.0) sec Sodium 136 L (137-145) mmol/L Potassium 4.9 (3.5-5.1) mmol/L Chloride 102 (98-107) mmol/L Carbon Dioxide 28 (22-30) mmol/L Anion Gap 6 mmol/L BUN 21 H (9-20) mg/dL Creatinine 0.67 (0.66-1.25) mg/dL Est GFR (CKD-EPI)AfAm >90 (>60 ml/min/1.73 sqM) Est GFR (CKD-EPI)NonAf >90 (>60 ml/min/1.73 sqM) Glucose 86 (74-99) mg/dL Calcium 9.8 (8.4-10.2) mg/dL Total Bilirubin 0.8 (0.2-1.3) mg/dL AST 37 (17-59) U/L ALT 15 (4-49) U/L Alkaline Phosphatase 54 (38-126) U/L Total Protein 7.2 (6.3-8.2) g/dL Albumin 4.6 (3.5-5.0) g/dL Amylase 62 (30-110) U/L Lipase 46 (23-300) U/L Urine Color Urine Appearance (Clear) Urine pH (5.0-8.0) Ur Specific [place] (1.001-1.035) Urine Protein (Negative) Urine Glucose (UA) (Negative) Urine Ketones (Negative) Urine Blood (Negative) Urine Nitrite (Negative) Urine Bilirubin (Negative) Urine Urobilinogen (<2.0) mg/dL Ur Leukocyte Esterase (Negative) 03/08/20 Range/Units 21:30 WBC (3.8-10.6) k/uL RBC (4.30-5.90) m/uL Hgb (13.0-17.5) gm/dL Hct (39.0-53.0) % MCV (80.0-100.0) fL MCH (25.0-35.0) pg MCHC (31.0-37.0) g/dL RDW (11.5-15.5) % Plt Count (150-450) k/uL Neutrophils % % Lymphocytes % % Monocytes % % Eosinophils % % Basophils % % Neutrophils # (1.3-7.7) k/uL Lymphocytes # (1.0-4.8) k/uL Monocytes # (0-1.0) k/uL Eosinophils # (0-0.7) k/uL Basophils # (0-0.2) k/uL PT (9.0-12.0) sec INR (<1.2) APTT (22.0-30.0) sec Sodium (137-145) mmol/L Potassium (3.5-5.1) mmol/L Chloride (98-107) mmol/L Carbon Dioxide (22-30) mmol/L Anion Gap mmol/L BUN (9-20) mg/dL Creatinine (0.66-1.25) mg/dL Est GFR (CKD-EPI)AfAm (>60 ml/min/1.73 sqM) Est GFR (CKD-EPI)NonAf (>60 ml/min/1.73 sqM) Glucose (74-99) mg/dL Calcium (8.4-10.2) mg/dL Total Bilirubin (0.2-1.3) mg/dL AST (17-59) U/L ALT (4-49) U/L Alkaline Phosphatase (38-126) U/L Total Protein (6.3-8.2) g/dL Albumin (3.5-5.0) g/dL Amylase (30-110) U/L Lipase (23-300) U/L Urine Color Light Yellow Urine Appearance Clear (Clear) Urine pH 7.0 (5.0-8.0) Ur Specific [place] 1.004 (1.001-1.035) Urine Protein Negative (Negative) Urine Glucose (UA) Negative (Negative) Urine Ketones Negative (Negative) Urine Blood Negative (Negative) Urine Nitrite Negative (Negative) Urine Bilirubin Negative (Negative) Urine Urobilinogen <2.0 (<2.0) mg/dL Ur Leukocyte Esterase Negative (Negative) - Radiology Data Radiology results: report reviewed (Computed tomography scan of the abdomen pelvis shows mild left-sided hydronephrosis similar to prior exam. Also left renal calculi. Prostate hypertrophy. Possible mild chronic cystitis. Indeterminate right pole renal lesion. Inguinal hernias.) Disposition Clinical Impression: Flank pain Disposition: HOME SELF-CARE Condition: Stable Instructions (If sedation given, give patient instructions): Flank Pain (ED) Additional Instructions: Please follow-up with urology and primary care physician in the next couple days for recheck. Return for fever, increased pain, vomiting, worsening or changing symptoms or other concerns. Is patient prescribed a controlled substance at d/c from ED?: No Referrals: Sukhdev Mills MD [STAFF PHYSICIAN] - 1-2 days Louie Radford MD [STAFF PHYSICIAN] - 1-2 days Time of Disposition: 23:05
[2020-03-08 21:19] LABS: Basophils # (A) 0.1 k/uL (0-0.2); Basophils % (A) 1 %; Eosinophils # (A) 0.2 k/uL (0-0.7); Eosinophils % (A) 3 %; HCT 42.8 % (39.0-53.0); HGB 14.7 gm/dL (13.0-17.5); Lymphocytes # (A) 1.9 k/uL (1.0-4.8); Lymphocytes % (A) 33 %; MCH 30.6 pg (25.0-35.0); MCHC 34.4 g/dL (31.0-37.0); MCV 89.2 fL (80.0-100.0); Monocytes # (A) 0.4 k/uL (0-1.0); Monocytes % (A) 7 %; Neutrophils # (A) 3.1 k/uL (1.3-7.7); Neutrophils % (A) 54 %; Platelet Count 178 k/uL (150-450); RDW 12.9 % (11.5-15.5); WBC 5.7 k/uL (3.8-10.6)
[2020-03-08 21:28] LABS: ALT 15 U/L (4-49); AST 37 U/L (17-59); African American GFR (CKD) >90 (>60 ml/min/1.73 sqM); Albumin 4.6 g/dL (3.5-5.0); Alkaline Phosphatase 54 U/L (38-126); Amylase 62 U/L (30-110); Anion Gap 6 mmol/L; Blood Urea Nitrogen 21 mg/dL (9-20); Calcium 9.8 mg/dL (8.4-10.2); Carbon Dioxide 28 mmol/L (22-30); Chloride 102 mmol/L (98-107); Glucose 86 mg/dL (74-99); Non-African American GFR(CKD) >90 (>60 ml/min/1.73 sqM); Potassium 4.9 mmol/L (3.5-5.1); Sodium 136 mmol/L (137-145); Total Bilirubin 0.8 mg/dL (0.2-1.3); Total Protein 7.2 g/dL (6.3-8.2)
[2020-03-08 21:36] LABS: Appearance,Urine Clear (Clear); Bilirubin,Urine Negative (Negative); Blood,Urine Negative (Negative); Color,Urine Light Yellow; Glucose,Urine (UA) Negative (Negative); Ketones,Urine Negative (Negative); Leukocyte Esterase,Urine Negative (Negative); Nitrite,Urine Negative (Negative); Protein,Urine Negative (Negative); Specific Gravity,Urine 1.004 (1.001-1.035); Urobilinogen,Urine <2.0 mg/dL (<2.0)
[2020-03-08 21:38] LABS: Partial Thromboplastin Time 21.4 sec (22.0-30.0); Prothrombin Time 10.1 sec (9.0-12.0)
--- NOTE | 2020-03-08 21:47 | CT ---
EXAMINATION TYPE: CT abdomen pelvis wo con DATE OF EXAM: 03/08/2020 COMPARISON: 03/21/2019 HISTORY: Left flank pain. CT DLP: 610.8 mGycm Automated exposure control for dose reduction was used. TECHNIQUE: Helical acquisition of images was performed from the lung bases through the pelvis. FINDINGS: LUNG BASES: There is a 1 mm subpleural nodule left lower lobe axial image 21 2 small to characterize. LIVER/GB: No significant abnormality is appreciated. PANCREAS: No significant abnormality is seen. SPLEEN: No significant abnormality is seen. ADRENALS: No significant abnormality is seen. KIDNEYS: There is mild left hydronephrosis. There are approximately 3 left renal stones largest measu ring 9 mm. No right-sided renal stones are seen. There is a hypodensity in the upper pole the right kidney which is similar to the prior exam of indet erminate by noncontrast CT. URINARY BLADDER: Bladder wall is mildly thickened ADENOPATHY: None visualized. OSSEOUS STRUCTURES: Hypertrophic and degenerative changes spine noted. Suggestion of a spondylolysis L5. BOWEL: Bowel gas pattern nonspecific without evidence of obstruction. OTHER: Aorta of normal caliber. Prostate appears enlarged with calcifications. There are bilateral in guinal hernias with small portions small bowel contained in the right. No obstruction. IMPRESSION: 1. Mild left hydronephrosis similar appearance to the prior exam with no evidence of ureteral calcifi cation. Multiple left renal calculi noted. 2. Correlate for mild chronic cystitis 3. Prostate hypertrophy. 4. indeterminant upper pole right renal lesion. 5. Bilateral inguinal hernias
[2020-03-08 23:21] VITALS: BP 108/84; PULSE 62; RESP 16
== END 2020-03-08 23:21 | disposition home or self-care (01) ==
LOC: EC 20:44
DX: R10.9 Unspecified abdominal pain (principal); F17.200 Nicotine dependence, unspecified, uncomplicated; Z87.442 Personal history of urinary calculi; Z98.890 Other specified postprocedural states; Z79.899 Other long term (current) drug therapy; Z88.0 Allergy status to penicillin
CPT/HCPCS: 36415; 80053; 82150; 83690; 85025; 85610; 85730; 81003; 74176; 99284; 96374; 96375; J2765; J1885

== ENCOUNTER → 2021-05-06 | Outpatient (CLI) | payer MEDICARE, OTHER ==
--- NOTE | 2021-05-07 08:03 | SFUN ---
SLEEP CENTER FOLLOW UP NOTE DATE OF SERVICE: 05/06/2021 70-year-old gentleman has been followed in Sleep Center for treatment of obstructive sleep apnea-hypopnea syndrome. I did not see patient for 2 years. The patient continues to use his equipment every night for the whole night. No snoring with the machine. [place] Sleepiness Scale is 4. I checked his CPAP unit. CPAP pressure of 11 cm of water. Usage is 100% of time, more than 4 hours with O2. She 7.8 hours per night. Leak is 12 L/minute which is borderline. Apnea-hypopnea index only 1.2, which is perfect. MEDICATIONS: None. PHYSICAL EXAMINATION: GENERAL: Patient in no distress. BP 136/77, HR 59, RR 16, height 5 feet 8 and three quarter inches, weight 178.6. Patient lost about 30 pounds since previous visit. Temperature 97.3, oxygen saturation at room air 99%. HEENT: Oropharynx low position of soft palate, Mallampati 4. NECK: Supple, no JVD. Thyroid is not palpable. LUNGS: Clear to percussion and to auscultation. Good air exchange. No wheezing or rhonchi. HEART: S1, S2 regular. No murmurs, gallops, or rubs. ABDOMEN: Soft and nontender. Bowel sounds are present. No organomegaly appreciated. EXTREMITIES: No clubbing or cyanosis. COTTON INSPECTOR: Awake, alert, and oriented X3. Cranial nerves 2 to 7 intact. There is no fasciculation or atrophy. noted. No focal deficits observed. IMPRESSION: 1. Obstructive sleep apnea-hypopnea syndrome. Patient demonstrated 100% compliance with treatment benefitting from treatment. 2. History of obesity in the past. Patient lost about 30 pounds, presently weight in normal range. 3. History of periodic limb movements during the sleep study. No complaints in periodic limb movements. 4. History of kidney stones in the past. 5. 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 PLAN: 1. Patient will continue to use PAP equipment every night for the whole night. 2. Sleep hygiene with regular time in bed for at least 7-1/2 to 8 hours. 3. Precautions related to driving. No driving if feeling sleepiness. 4. I will maintain all necessary prescription for PAP supplies including mask, tube, filters. 5. Watching weight. 6. Follow-up visit in 6 months or earlier if patient has any problems. Aiden Bass MD, PhD, FAASM Diplomat of [place] [employer] [place] [employer] Supervisor Pressing Department of [facility] [place] MMODL / MITZYN: [id number] /
== END ==
LOC: SLEEP 15:18
PROVIDERS: ATTEND Internal Medicine
DX: G47.33 Obstructive sleep apnea (adult) (pediatric) (principal); Z87.442 Personal history of urinary calculi; Z86.39 Personal history of other endocrine, nutritional and metabolic disease; Z88.0 Allergy status to penicillin; Z87.891 Personal history of nicotine dependence

== ENCOUNTER → 2021-11-11 | Outpatient (CLI) | payer MEDICARE, OTHER ==
--- NOTE | 2021-11-11 22:14 | SFUN ---
SLEEP CENTER FOLLOW UP NOTE DATE OF SERVICE: 11/11/2021 71-year-old gentleman has been followed in Sleep Center for treatment of obstructive sleep apnea-hypopnea syndrome. The patient continues to use his CPAP equipment every night for the whole night. He did have some problems with the supplies, now changed his [employer] company and now everything is working well for him. [place] Sleepiness Scale today is 3. I checked his CPAP unit. CPAP pressure is 11 cm of water. Usage is 30/30 nights and 29/30 nights more than 4 hours, average 8.6 hours per night. Leak is 10 L/minute which is borderline. Apnea-hypopnea index is 2.3 which is totally normal. MEDICATIONS: None. PHYSICAL EXAMINATION: GENERAL: Patient in no distress. BP 138/78, HR 64, RR 15, height 5 feet 8 inches, weight 186, body mass index 28.2, temperature 97.7, oxygen saturation at room air 97%. OROPHARYNX: Extremely low position of soft palate, Mallampati 4. NECK: Supple, no JVD. Thyroid is not palpable. LUNGS: Clear to percussion and to auscultation. Good air exchange. No wheezing or rhonchi. HEART: S1, S2 regular. No murmurs, gallops, or rubs. ABDOMEN: Soft and nontender. Bowel sounds are present. No organomegaly appreciated. EXTREMITIES: No clubbing or cyanosis. GRAIN MILL WORKER: Awake, alert, and oriented X3. Cranial nerves 2 to 7 intact. There is no fasciculation or atrophy. noted. No focal deficits observed. IMPRESSION: 1. Obstructive sleep apnea-hypopnea syndrome. Patient demonstrated great compliance with treatment. Normal respiration on CPAP. 2. History of periodic limb movement during the sleep study. No complaints of periodic limb movements. 3. History of kidney stones in the past. 4. 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 PLAN: 1. Patient will continue to use PAP equipment every night for the whole night. 2. Sleep hygiene with regular time in bed for at least 7-1/2 to 8 hours. 3. Precautions related to driving. No driving if feeling sleepiness. 4. I will maintain all necessary prescription for PAP supplies including mask, tube, filters. 5. Watching weight. 6. Follow-up visit in 6 months or earlier if patient has any problems. Sincerely, Aiden Bass MD, PhD, FAASM Diplomat of [place] [employer] Sleep Medicine Board of [place] [employer] Speed Belt Sander of [facility] [place] [email or web address] / ANDREIA: [id number] /
== END | disposition home or self-care (01) ==
LOC: SLEEP 14:15
PROVIDERS: ATTEND Internal Medicine
DX: G47.33 Obstructive sleep apnea (adult) (pediatric) (principal); F17.200 Nicotine dependence, unspecified, uncomplicated; Z87.442 Personal history of urinary calculi; Z88.0 Allergy status to penicillin

== ENCOUNTER 2021-12-15 16:21 | Emergency (ER) | payer MEDICARE, OTHER ==
[2021-12-15] MEDS ORDERED: MECLIZINE 12.5 MG TAB PO STA (17:27)
--- NOTE | 2021-12-15 17:27 | ED ---
General Adult HPI - General Chief complaint: Dizziness Stated complaint: dizziness Time Seen by Provider: 12/15/21 17:10 Source: patient, RN notes reviewed, old records reviewed Mode of arrival: ambulatory Limitations: no limitations - History of Present Illness Initial comments: Well-appearing 71-year-old male presents to the emergency room with complaints of dizziness today that started this afternoon after bending over and stretching. He states when he stood up he became very dizzy. He states he has intermittent dizziness worse when turning his head to the right. He denies any medications on a daily basis, no alcohol or drug use. -: hour(s) (4) Location: head Severity scale (1-10): 0 Consistency: intermittent Improves with: rest Worsens with: movement (turning head to right) Associated Symptoms: other (dizziness) Treatments Prior to Arrival: none - Related Data Home Medications Medication Instructions Recorded Confirmed No Known Home Medications 12/15/21 12/15/21 Allergies Allergy/AdvReac Type Severity Reaction Status Date / Time Penicillins Allergy Unknown Verified 12/15/21 18:36 Childhood Review of Systems ROS Statement: Those systems with pertinent positive or pertinent negative responses have been documented in the HPI. ROS Other: All systems not noted in ROS Statement are negative. Past Medical History Additional Past Medical History / Comment(s): hernia, "IRREG HEART BEAT FEW YEARS AGO", KIDNEY STONES X3 History of Any Multi-Drug Resistant Organisms: None Reported Past Surgical History: Adenoidectomy, Tonsillectomy Additional Past Surgical History / Comment(s): lithotripsy, SX FOR GENTIAL WARTS Past Anesthesia/Blood Transfusion Reactions: No Reported Reaction Past Psychological History: No Psychological Hx Reported Smoking Status: Never smoker Past Alcohol Use History: Rare Past Drug Use History: Cocaine, Marijuana - Past Family History Father Family Medical History: Myocardial Infarction ([place]) Additional Family Medical History / Comment(s): AT AGE 77 Mother Family Medical History: Diabetes Mellitus General Exam Limitations: no limitations General appearance: alert, in no apparent distress Head exam: Present: atraumatic, normocephalic, normal inspection Eye exam: Present: normal appearance, EOMI, nystagmus (horizontal nystagmus to the right, no nystagmus to the left; nystagmus resolved within 30 seconds). Absent: scleral icterus, conjunctival injection, periorbital swelling, periorbital tenderness ENT exam: Present: normal exam, mucous membranes moist, TM's normal bilaterally Neck exam: Present: normal inspection, full ROM. Absent: tenderness, meningismus, lymphadenopathy, thyromegaly Respiratory exam: Present: normal lung sounds bilaterally. Absent: respiratory distress, wheezes, rales, rhonchi, stridor, chest wall tenderness, accessory muscle use, decreased breath sounds Cardiovascular Exam: Present: regular rate, normal rhythm GI/Abdominal exam: Present: soft. Absent: tenderness Extremities exam: Present: normal inspection, full ROM, normal capillary refill. Absent: tenderness, pedal edema, joint swelling, calf tenderness Neurological exam: Present: alert, oriented X3, other (Rapid hand movement test quick and accurate ; finger to finger test smooth and accurate) Expanded Patient oriented to: Present: person, place, time Speech: Present: fluid speech Cranial nerves: EOM's Intact: Normal, Gag Reflex: Normal, Tongue Deviation: Normal Cerebellar function: Finger to Nose: Normal Eye Response: (4) open spontaneously Motor Response: (6) obeys commands Verbal Response: (5) oriented Tanner Total: 15 Psychiatric exam: Present: normal affect, normal mood Skin exam: Present: warm, dry, intact, normal color. Absent: rash, cyanosis, diaphoretic, petechiae, pallor Course Vital Signs 12/15/21 12/15/21 17:03 19:06 Temperature 98.1 F 98.8 F Pulse Rate 71 65 Respiratory 18 16 Rate Blood Pressure 148/94 131/94 O2 Sat by Pulse 98 99 Oximetry - Reevaluation(s) Reevaluation #1: 12/15/21 18:22 Lolly maneuver performed to the right. Nystagmus has resolved. Patient no longer has dizziness. Time: 18:23 Medical Decision Making - Medical Decision Making Well-appearing 71-year-old presents with dizziness after stretching today. Upon exam with the Simone-Hallpike maneuver, he developed a horizontal nystagmus on the right which exacerbated his dizziness. Patient was given Antivert and Lolly maneuver was performed. The nystagmus has resolved and the patient no longer has dizziness with Simone-Hallpike testing. Patient was given a referral to an ENT and a prescription for Antivert along with directions on how to perform the Lolly maneuver at home. He was instructed to return to the emergency with any new or concerning symptoms. Follow-up with his primary care doctor. Case discussed with Dr. Hickey Disposition Clinical Impression: Vertigo Disposition: HOME SELF-CARE Condition: Good Instructions (If sedation given, give patient instructions): Vertigo (ED) Additional Instructions: Take Antivert as prescribed for dizziness. Follow-up with ear nose and throat doctor as referred. Return to the emergency room with any new or concerning symptoms Is patient prescribed a controlled substance at d/c from ED?: No Referrals: None,Stated [Primary Care Provider] - 1-2 days Rashi Garcia DO [Doctor of Osteopathic Medicine] - 1-2 days Time of Disposition: 18:25
[2021-12-15 19:08] VITALS: BP 131/94; PULSE 65; RESP 16; TEMP 98.8
== END 2021-12-15 19:06 | disposition home or self-care (01) ==
LOC: EC 16:21
DX: R42 Dizziness and giddiness (principal); Z88.0 Allergy status to penicillin
CPT/HCPCS: 99283

== ENCOUNTER → 2022-11-10 | Outpatient (CLI) | payer MEDICARE, OTHER ==
--- NOTE | 2022-11-10 15:24 | P.PN ---
Subjective DATE: 11/10/2022 FOLLOW UP VISIT. Patient with obstructive sleep apnea hypopnea syndrome return to sleep center for follow-up visit. Information from previous visit have been reviewed. Patient is using PAP equipment every night for the whole night, getting PAP supplies in time. The patient does not have significant problems with the mask, PAP unit and humidification. Scroggins sleepiness scale is 12, which is slightly increased. I checked information from PAP unit. PAP unit pressure 11 cm H2O. Usage is 100 % for more then 4 hours, average 8.7 hours per night. Leak is 19 l/m, which is in acceptable range. Apnea Hypopnea Index is 2.1, which is normal. MEDICATIONS: None During physical exam: GENERAL: A pleasant patient without any distress. VITAL SIGNS: BP 126/68, HR 64, RR 16, weight 190, BMI 28.4, temperature 98.0, oxygen saturation at room air 98 % . HEENT: PERRLA, EOMI.low position of soft palate, Mallapati 4 . NECK: Supple. No JVD. LUNGS: Clear to percussion and to auscultation. Good air exchange. No wheezing or rhonchi. HEART: S1, S2 regular. ABDOMEN: Soft and nontender.[] EXTREMITIES: No clubbing or cyanosis. MASTER COASTWISE YACHT: Awake, alert, and oriented x3. No focal deficit. Impressions: 1. Obstructive sleep apnea-hypopnea syndrome. Patient demonstrated great compliance with treatment, benefiting from treatment. 2. History of periodic limb movements, no clinical symptoms or complaints. 3. History of kidney stones in the past. 4. 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 Plan: 1. Continue using PAP equipment every night for the whole night. 2. To change air filter at least 1-2 times per month. 3. PAP unit should stay lower then position of the head. 4. Advised patient to remove all remaining water from humidifier canister daily and make it dry after each usage. Refill canister with fresh distilled water before each usage. 5. Sleep hygiene with regular time in bed for at least 8 hours. 6. Precautions related to driving. No driving if feel any sleepiness. 7. I will maintain prescription for PAP supplies including mask, tube, filters. 8. Follow up visit in 6 months or earlier if patient has any problems. 9. Watching weight. Thank you very much for allowing me to participate in the management of your patient. Aiden Bass MD, PhD, FAASM. Diplomat of [place] [employer], Sleep Medicine Board by [place] [employer] [facility] Manager of [facility] [place]
== END ==
LOC: SLEEP 14:58
PROVIDERS: ATTEND Internal Medicine
DX: G47.33 Obstructive sleep apnea (adult) (pediatric) (principal); Z99.89 Dependence on other enabling machines and devices; G47.61 Periodic limb movement disorder; Z87.442 Personal history of urinary calculi; Z88.0 Allergy status to penicillin; F17.200 Nicotine dependence, unspecified, uncomplicated
CPT/HCPCS: 99212